=== PATIENT | male | born 1985 | race Two or more races ===

== ENCOUNTER 2016-10-11 10:15 | Emergency (ER) | payer OTHER ==
[~2016-10-11] VITALS: Ht 175.3 cm; Wt 90.7 kg
[2016-10-11 10:36] VITALS: BP 137/87
[2016-10-11] MEDS ORDERED: KETOROLAC TROMETH 60MG/2ML VIAL IM ONE (10:45)
[2016-10-11] MEDS ORDERED: ONDANSETRON ODT 4 MG TAB PO ONE (12:15)
[2016-10-11] MEDS ORDERED: MORPHINE SULFATE 4 MG/ML SYRG IM ONE (12:15)
== END 2016-10-11 13:29 | disposition home or self-care (01) ==
LOC: EDBD 10:15 → EDUNIT# 10:15 → ER 10:17
DX: S33.5XXA Sprain of ligaments of lumbar spine, initial encounter (principal); M54.30 Sciatica, unspecified side; Z88.6 Allergy status to analgesic agent; X58.XXXA Exposure to other specified factors, initial encounter; Y93.89 Activity, other specified; Y99.8 Other external cause status; Y92.89 Other specified places as the place of occurrence of the external cause
CPT/HCPCS: 72131; 96372; 99284; J1885; J2270; Q0162